=== PATIENT | male | born 1990 | race Caucasian/White ===

== ENCOUNTER 2016-09-28 19:49 | Outpatient (CLI) | payer SELFPAY ==
[~2016-09-28 19:49] MED LIST: AGM875T PO; ONDAN4ODT PO
[2016-09-30] MEDS ORDERED: HYDR-757 PO (16:44)
[2016-09-30] MEDS ORDERED: AMOX-358 PO (16:44)
== END 2016-09-29 06:00 | disposition home or self-care (01) ==
LOC: SLEEP 19:49
PROVIDERS: ATTEND Nurse Practitioner
DX: G47.10 Hypersomnia, unspecified (principal); R06.83 Snoring
CPT/HCPCS: 95811

== ENCOUNTER 2016-09-30 15:42 | Emergency (ER) | payer SELFPAY ==
[~2016-09-30] VITALS: Ht 172.7 cm; Wt 72.6 kg
[2016-09-30] MEDS ORDERED: AUGMENTIN 875 MG TAB (AMOXICILLIN/CLAVULANATE) PO SCH (16:30)
[2016-09-30] MEDS ORDERED: LIDOCAINE 2% 20 ML (XYLOCAINE) VIAL INJ ONE (16:30)
--- NOTE | 2016-09-30 16:35 | ED Upper Extremity ---
General Chief Complaint: Foreign Body Stated Complaint: FISHING HOOK IN RIGHT HAND Nursing Triage Note: FISH HOOK IN RIGHT THUMB/INDEX FINGER Source: patient Exam Limitations: no limitations History of Present Illness Time seen by provider: 16:31 Initial Comments To ER with a petr. There is a treble hook stuck with 1 randal in his thumb and the other randal in his pointer finger. Uncertain tetanus status. Onset: just prior to arrival Severity: moderate Pain/Injury Location: right thumb, right 2nd finger Method of Injury: unknown Modifying Factors: Worse With Movement Allergies and Home Medications Allergies Coded Allergies: No Known Drug Allergies (Unverified , 05/29/10) Home Medications Amoxicillin/Potassium Clav 1 Each Tablet, 1 EACH PO BID, #6 Prescribed by: TAYE WOLF on 09/30/16 1644 Hydrocodone/Acetaminophen 1 Each Tablet, 1 EACH PO Q4H PRN for PAIN-MODERATE TO SEVERE, #10 Prescribed by: TAYE WOLF on 09/30/16 1644 Constitutional: see HPI EENTM: see HPI Respiratory: no symptoms reported Cardiovascular: no symptoms reported Genitourinary: no symptoms reported Musculoskeletal: no symptoms reported Skin: see HPI Psychiatric/Neurological: No Symptoms Reported Past Uascdpe-[id number]-Lpclot Hx Patient Social History Alcohol Use: Regular Use Recreational Drug Use: Yes Drug of Choice: CANNIBUS Type Used: Smokeless Tobacco 2nd Hand Smoke Exposure: No Recent Foreign Travel: No Contact w/Someone Who Travel: No Recent Hopitalizations: No Immunizations Up To Date Tetanus Booster (TDap): Unknown Date of Influenza Vaccine: Feb 12, 2012 Seasonal Allergies Seasonal Allergies: No Surgeries Surgeries: Adenoidectomy, Tonsillectomy Respiratory Hx Respiratory Disorders: No Cardiovascular Hx Cardiac Disorders: No Reproductive System Hx Reproductive Disorders: No Genitourinary Hx Genitourinary Disorders: No Gastrointestinal Hx Gastrointestinal Disorders: Yes (BLOOD IN STOOLS) Musculoskeletal Hx Musculoskeletal Disorders: No Endocrine Hx Endocrine Disorders: No HEENT HX ENT Disorders: No Psychosocial Hx Psychiatric Problems: Yes Blood Transfusions Hx Blood Disorders: No Physical Exam Vital Signs Vital Sign - Last 12Hours 09/30/16 16:29 Temp 98.1 Pulse 67 Resp 18 B/P (MAP) 134/92 Pulse Ox 100 O2 Delivery Room Air Capillary Refill : General Appearance: WD/WN, no apparent distress HEENT: PERRL/EOMI, normal ENT inspection Neck: non-tender, full range of motion Respiratory: no respiratory distress, no accessory muscle use Gastrointestinal: normal bowel sounds, non tender Shoulder: normal inspection, non-tender Elbow/Forearm: normal inspection, non-tender, Right Wrist: Yes normal inspection, Yes non-tender Hand: Right, limited ROM (thumb and pointer finger are stuck together with 1 randla in each finger from a treble hook) I&D : Progress Fingers cleaned with Betadine. Anesthetized with a total of 1 mL of 1 percent lidocaine without epinephrine. 1 mL in each finger that is. Fingers were by clipping the barbs at the base of the treble hook. Arms were then pushed forward through the skin, randal was cut off and pulled back out the same track they went in. Progress/Results/Core Measures Results/Orders My Orders Orders - TAYE WOLF APRN Lidocaine 2% Injection 20 Ml (Xylocaine (09/30/16 16:30) Amoxicillin/Clavulanate Tablet (Augmenti (09/30/16 16:30) Dipht,Pertuss(Acell),Tet Adult (Boostrix (09/30/16 16:45) Medications Given in ED Current Medications Medications Dose Ordered Sig/Ruthann Route Start Time Stop Time Status Last Admin Dose Admin Diphtheria/ Tetanus/Acell Pertussis 0.5 ml ONCE ONCE IM 09/30/16 16:45 09/30/16 16:46 09/30/16 16:37 0.5 ML Lidocaine HCl 3 ml ONCE ONCE INJ 09/30/16 16:30 09/30/16 16:31 DC 09/30/16 16:37 3 ML Vital Signs/I&O Vital Sign - Last 12Hours 09/30/16 16:29 Temp 98.1 Pulse 67 Resp 18 B/P (MAP) 134/92 Pulse Ox 100 O2 Delivery Room Air Departure Impression Impression: Primary Impression: Fairdealing injury to finger Disposition: 01 HOME, SELF-CARE Condition: Stable Departure-Patient Inst. Decision time for Depature: 16:32 Referrals: DIANA ADKINS DO (PCP/Family) Primary Care Physician Patient Instructions: NO INSTRUCTIONS GIVEN Add. Discharge Instructions: 1. Antibiotics for the next couple days 2. Pain medication as needed 3. Lidocaine wear off in the next couple hours. All discharge instructions reviewed with patient and/or family. Voiced understanding. Scripts Hydrocodone/Acetaminophen ([place] 5-325 Tablet) 1 Each Tablet 1 EACH PO Q4H Y for PAIN-MODERATE TO SEVERE, #10 TAB Prov: TAYE WOLF APRN 09/30/16 Amoxicillin/Potassium Clav (Augmentin 875-125 Tablet) 1 Each Tablet 1 EACH PO BID, #6 TAB Prov: TAYE WOLF APRN 09/30/16 TAYE WOLF APRN September 30, 2016 16:35
[2016-09-30] MEDS ORDERED: HYDR-757 PO (16:44)
[2016-09-30] MEDS ORDERED: AMOX-358 PO (16:44)
[2016-09-30] MEDS ORDERED: TETANUS,DIPTH,PERTUSS P/F (BOOSTRIX) 0.5 ML VIAL IM ONE (16:45)
[2016-09-30 16:47] VITALS: BP 134/92
== END 2016-09-30 16:47 | disposition home or self-care (01) ==
LOC: EDUNIT# 15:42 → ER 15:44
DX: S60.351A Superficial foreign body of right thumb, initial encounter (principal); S60.450A Superficial foreign body of right index finger, initial encounter; Z23 Encounter for immunization; F17.220 Nicotine dependence, chewing tobacco, uncomplicated; W22.8XXA Striking against or struck by other objects, initial encounter; Y99.8 Other external cause status
CPT/HCPCS: 90471; 90715; 99282